=== PATIENT | male | born 1975 | race Caucasian/White ===

== ENCOUNTER 2018-05-26 08:46 | Day surgery (SDC) | payer BC ==
[2018-05-25 13:56] VITALS: BMI 25.0
[2018-05-26] MEDS ORDERED: CEFAZOLIN/Water 2 GM/20 ML SYRINGE ONE (10:17)
[2018-05-26] MEDS ORDERED: Fentanyl 100 MCG/2 ML VIAL ONE ×4 (10:24→13:21)
[2018-05-26] MEDS ORDERED: Midazolam HCl 2 mg/2 ml Vial ONE (10:31)
[2018-05-26] MEDS ORDERED: Bupivacaine HCl 0.5%/Epinephrine 1:200,000/PF 30 ml Vial ONE (11:25)
[2018-05-26] MEDS ORDERED: HYDROmorphone 0.5 MG/0.5 ML SYRINGE ONE ×2 (11:37→12:08)
[2018-05-26] MEDS ORDERED: Ropivacaine 0.5% HCl/PF (150 MG/30 ML VIAL) ONE (13:00)
--- NOTE | 2018-05-26 13:01 | OP ---
DATE OF PROCEDURE: 05/26/2018 OPERATION: Open reduction and internal fixation of right olecranon fracture. PREOPERATIVE DIAGNOSIS: Right displaced olecranon fracture. POSTOPERATIVE DIAGNOSIS: Right displaced olecranon fracture. COMPLICATIONS: None. ESTIMATED BLOOD LOSS: Minimal. SURGEON: Tato Pereira M.D. ANESTHESIA: General plus local. IMPLANTS: Synthes posterior olecranon plate variable angle locking. INDICATIONS: Mr. Lauren is a 43-year-old male who was running. He fell and fractured his right ole cranon. He had a displaced fracture. He was indicated for open reduction and internal fixation to r estore anatomic alignment and promote healing. Risks have been reviewed in detail. He has elected t o proceed with the operation. DESCRIPTION OF PROCEDURE: Mr. Lauren was identified in the preoperative holding area. His correct extremity was marked. He was carried to the operating room. He was positioned supine. General anes thesia was induced. A multidisciplinary timeout was performed. The right upper extremity was preppe d and draped in the sterile fashion. We began the procedure with a posterior approach to the elbow. We dissected down through the subcuta neous tissues to the fascia, which was opened. We then exposed the underlying fracture site. Hemato ma was removed. We cleared the bony edges. We then anatomically reduced the fracture using a reduct ion clamp. We held this with a K-wire. We then applied a Synthes posterior olecranon plate. Multip le screws were placed proximally and distally locking the plate to the bone. We used locking technol ogy. We took x-ray images confirming hardware placement and reduction. There were no complications. Once we finished screw placement, again we took final images. We thoroughly irrigated. We then cl osed with 0 Vicryl suture, 2-0 Vicryl suture, cierra for the skin and a splint was placed. The melany ent was taken to the recovery room in good condition without complication.
--- NOTE | 2018-05-26 13:23 | RAD ---
LEFT ELBOW TWO VIEWS: History: 43-year-old male with ORIF right elbow/repair olecranon. FINDINGS: Metal plate and multiple screws stabilize the olecranon with reduction of the previously noted displa warren olecranon fracture with marked improvement in position and alignment. IMPRESSION: Markedly improved position and alignment of a markedly displaced ulna olecranon fracture stabilized w ith a metal plate screws. POS: MAXX
[2018-05-26] MEDS ORDERED: Lidocaine 1% PF 5 ML VIAL ONE (13:38)
[2018-05-26] MEDS ORDERED: Ondansetron HCl/PF 4 MG/2 ML Vial ONE (13:38)
[2018-05-26] MEDS ORDERED: PROPOFOL 200 MG/20 ML VIAL ONE (13:38)
[2018-05-26] MEDS ORDERED: Dexamethasone 20 MG/5 ML VIAL ONE (13:38)
[2018-05-26] MEDS ORDERED: Ondansetron HCl/PF 4 MG/2 ML Vial IVP PRN (14:04)
[2018-05-26] MEDS ORDERED: Promethazine HCl 25 MG/ML VIAL IM PRN (14:04)
[2018-05-26] MEDS ORDERED: Zolpidem Tartrate 5 MG TAB PO PRN (14:04)
[2018-05-26] MEDS ORDERED: Ropivacaine HCl/PF 1,100 MG in Sodium Chloride 0.9% 440 ML NERVE BLCK SCH (14:04)
== END 2018-05-26 15:50 | disposition home or self-care (01) ==
LOC: SDC 08:46
PROVIDERS: ATTEND Orthopaedic Surgery
PROC: 0PSK04Z Reposition Right Ulna with Internal Fixation Device, Open Approach (ICD-10-PCS; principal; 2018-05-26)
DX: S52.021A Displaced fracture of olecranon process without intraarticular extension of right ulna, initial encounter for closed fracture (principal); W19.XXXA Unspecified fall, initial encounter; Y93.02 Activity, running
CPT/HCPCS: 76001; 96374; C1713; J0670; J1170; J2250; J3010; J7050